=== PATIENT | female | born 1945 | race Caucasian/White ===

== ENCOUNTER 2023-03-20 21:15 | Inpatient (IN) | payer BC, MEDICARE ==
[~2023-03-20 21:15] MED LIST: Iopamidol-370 76% 500 ML MDV (1 ML CHARGE) ONE
[2023-03-20 21:47] LABS: #Eosinphils 0.2 thou/uL (0.0-0.7); #Monocytes 0.8 thou/uL (0.11-0.59); #Neutrophils 4.6 thou/uL (1.40-6.50); %Basophils 0.4 % (0.0-1.0); %Eosinophils 1.6 % (0.0-10.0); %Lymphocytes 47.9 % (21.0-51.0); %Monocytes 7.5 % (0.0-10.0); %Neutrophils 40.7 % (42.0-75.0); Hematocrit 34.8 % (36.0-47.0); Hemoglobin 10.9 g/dL (12.0-16.0); Mean Corpuscular HGB CONC 31.3 g/dL (32.0-36.0); Mean Corpuscular Hemoglobin 26.1 pg (27.0-31.0); Mean Corpuscular Volume 83.3 fl (78.0-98.0); Mean Platelet Volume 8.8 fL (7.4-10.4); Platelet Count 240 10x3/uL (130-400); Red Blood Cell (RBC) Count 4.18 mill/uL (4.20-5.40); White Blood Cell (WBC) Count 11.2 10x3/uL (4.8-10.8)
[2023-03-20 22:24] LABS: ALT (SGPT) 15 U/L (8-55); AST (SGOT) 20 U/L (5-34); Albumin 3.6 g/dL (3.4-4.8); Alkaline Phosphatase 47 U/L (40-110); Anion Gap 16 mmol/L (10-20); BUN (Urea Nitrogen) 15 mg/dL (9.8-20.1); Bilirubin, Total 0.4 mg/dL (0.2-1.2); Calc. Creatinine Clearance 0 mL/min (70-130); Carbon Dioxide 20 mmol/L (23-31); Chloride 95 mmol/L (98-107); Estimated GFR 62; Globulin 2.5 g/dL (2.4-3.5); Glucose 142 mg/dL (83-110); Potassium 3.2 mmol/L (3.5-5.1); Protein, Total 6.1 g/dL (5.8-8.1); Sodium 128 mmol/L (136-145)
[2023-03-20 22:25] LABS: Troponin I Less than 0.010 ng/mL (< 0.028)
[2023-03-20 22:28] LABS: Critical Call Chem-Lactate NUR.MB20@2228
[2023-03-21 00:33] LABS: Bacteria/HPF None Seen HPF (None Seen); Bilirubin Negative (Negative); Blood, Urine Negative (Negative); CAUTI Indications for Culture Alt mental st,lethar; Clarity Clear (Clear); Glucose, Urine (Dipstick) Normal (Negative); Ketone, Urine Negative (Negative); Leukocyte Negative Leu/uL (Negative); Nitrite Negative (Negative); Protein, Urine (Dipstick) Negative (Neg-Trace); RBC/HPF 0-3 HPF (0-3); Specific Gravity, Urine 1.037 (1.002-1.036); Squamous Epithelial None Seen HPF (0-3); Urobilinogen Normal mg/dL (Less than 2)
[2023-03-21 00:36] LABS: Urine Culture Reflex No No
[2023-03-21] MEDS ORDERED: LORazepam 2 MG/ML SYR.(CARPUJECT) ONE (00:41)
[2023-03-21] MEDS ORDERED: levETIRAcetam 500 MG (5 mL) VIAL ONE (00:46)
[2023-03-21] MEDS ORDERED: Sodium Chloride 0.9% 100 ML ONE (00:46)
[2023-03-21] MEDS ORDERED: dilTIAZem 25 MG/5 ML VIAL ONE (00:56)
[2023-03-21 01:31] LABS: Lactic Acid 1.3 mmol/L (0.5-2.2)
[2023-03-21 01:42] LABS: Amphetamine Not Detected (NotDetected); Barbiturates Screen Not Detected (NotDetected); Benzodiazepine Screen Not Detected (NotDetected); Cocaine Metabolite Screen Not Detected (NotDetected); Methadone Not Detected (NotDetected); Methamphetamine Not Detected (NotDetected); Opiate Screen Not Detected (NotDetected); Oxycodone Screen Not Detected (NotDetected); Phencyclidine (PCP) Not Detected (NotDetected); THC/Cannabinoid Screen Not Detected (NotDetected); Tricyclic Screen Not Detected (NotDetected)
[2023-03-21 01:52] LABS: Acetaminophen Less than 10 mcg/mL (10.0-30.0); Alcohol Less than 10.0 mg/dL (Less than 10); Lipase 72 U/L (8-78); Salicylate Less than 8.0 mg/dL (15.0-30.0)
[2023-03-21] MEDS ORDERED: Lorazepam 2 MG/ML VIAL SLOW IVP PRN (02:08)
[2023-03-21] MEDS ORDERED: Electrolyte Replacement Protocol 1 EACH FS SCH (02:09)
[2023-03-21] MEDS ORDERED: Ondansetron ODT 4 MG TAB PO PRN (02:10)
[2023-03-21 02:28] LABS: SARS-CoV-2 NAA Rapid Test Not Detected (NotDetected)
[2023-03-21 03:01] LABS: Magnesium 1.8 mg/dL (1.6-2.6)
[2023-03-21] MEDS ORDERED: Magnesium 2 GM/50 ML(in water) 2 GM in Premix 1 BAG IVPB SCH (04:00)
[2023-03-21 04:36] VITALS: BMI 24.4
[2023-03-21] MEDS ORDERED: Magnesium 2 GM/50 ML BAG (IN WATER) ONE (04:40)
[2023-03-21] MEDS ORDERED: niCARdipine 25 MG/10 ML SDV ONE (04:40)
[2023-03-21] MEDS ORDERED: Potassium Chloride 20 MEQ (100 mL) BAG ONE ×2 (04:40→06:50)
[2023-03-21] MEDS: Potassium Chloride 20 MEQ in Premix 1 BAG IVPB SCH ×2 (04:55→06:56)
[2023-03-21] MEDS: niCARdipine 25 MG in Sodium Chloride 0.9% 250 ML 250 ML IVPB SCH ×2 (05:03→05:26)
[2023-03-21 06:04] LABS: Anion Gap 16 mmol/L (10-20); BUN (Urea Nitrogen) 10 mg/dL (9.8-20.1); Calc. Creatinine Clearance 58 mL/min (70-130); Calcium 9.2 mg/dL (7.8-10.44); Carbon Dioxide 21 mmol/L (23-31); Chloride 98 mmol/L (98-107); Estimated GFR 77; Glucose 181 mg/dL (83-110); Potassium 3.2 mmol/L (3.5-5.1); Sodium 132 mmol/L (136-145)
[2023-03-21] MEDS ORDERED: Famotidine 20 MG TAB PO SCH (09:00)
[2023-03-21] MEDS ORDERED: Losartan 25 MG TAB PO SCH (09:45)
[2023-03-21] MEDS ORDERED: Spironolactone 25 MG TAB PO SCH (09:45)
[2023-03-21] MEDS ORDERED: Lorazepam 2 MG/ML VIAL SLOW IVP SCH (09:45)
[2023-03-21] MEDS ORDERED: Famotidine 20 MG TAB ONE (09:54)
[2023-03-21] MEDS ORDERED: Losartan 25 MG TAB ONE (09:54)
[2023-03-21 15:00] LABS: #Monocytes 0.5 thou/uL (0.11-0.59); %Basophils 0.2 % (0.0-1.0); %Eosinophils 0.1 % (0.0-10.0); %Lymphocytes 7.2 % (21.0-51.0); %Monocytes 2.7 % (0.0-10.0); %Neutrophils 89.4 % (42.0-75.0); Hematocrit 42.2 % (36.0-47.0); Hemoglobin 13.5 g/dL (12.0-16.0); Mean Corpuscular Hemoglobin 26.3 pg (27.0-31.0); Mean Corpuscular Volume 82.1 fl (78.0-98.0); Mean Platelet Volume 9.4 fL (7.4-10.4); Platelet Count 186 10x3/uL (130-400); RBC Distribution Width 15.1 % (11.5-14.5); Red Blood Cell (RBC) Count 5.14 mill/uL (4.20-5.40); White Blood Cell (WBC) Count 17.9 10x3/uL (4.8-10.8)
[2023-03-21] MEDS: Acetaminophen 325 MG TAB PO PRN (15:12)
[2023-03-21 15:22] LABS: ALT (SGPT) 23 U/L (8-55); AST (SGOT) 46 U/L (5-34); Albumin 4.1 g/dL (3.4-4.8); Alkaline Phosphatase 66 U/L (40-110); Anion Gap 16 mmol/L (10-20); BUN (Urea Nitrogen) 12 mg/dL (9.8-20.1); Bilirubin, Total 1.7 mg/dL (0.2-1.2); CK (CPK) 797 U/L (29-168); Calc. Creatinine Clearance 62 mL/min (70-130); Calcium 8.7 mg/dL (7.8-10.44); Carbon Dioxide 21 mmol/L (23-31); Chloride 98 mmol/L (98-107); Estimated GFR 84; Globulin 3.2 g/dL (2.4-3.5); Glucose 118 mg/dL (83-110); Magnesium 2.2 mg/dL (1.6-2.6); Potassium 3.9 mmol/L (3.5-5.1); Protein, Total 7.3 g/dL (5.8-8.1); Sodium 131 mmol/L (136-145)
[2023-03-21] MEDS: levETIRAcetam 500 MG (5 mL) VIAL SLOW IVP SCH (20:29)
[2023-03-22] MEDS ORDERED: Sodium Chloride 0.9% 500 ML IV SCH (01:00)
[2023-03-22 01:19] LABS: #Monocytes 0.4 thou/uL (0.11-0.59); #Neutrophils 14.5 thou/uL (1.40-6.50); %Basophils 0.1 % (0.0-1.0); %Lymphocytes 4.4 % (21.0-51.0); %Monocytes 2.4 % (0.0-10.0); %Neutrophils 92.8 % (42.0-75.0); Hematocrit 38.8 % (36.0-47.0); Hemoglobin 12.4 g/dL (12.0-16.0); Mean Corpuscular Hemoglobin 26.7 pg (27.0-31.0); Mean Corpuscular Volume 83.6 fl (78.0-98.0); Platelet Count 163 10x3/uL (130-400); RBC Distribution Width 15.5 % (11.5-14.5); Red Blood Cell (RBC) Count 4.64 mill/uL (4.20-5.40); White Blood Cell (WBC) Count 15.6 10x3/uL (4.8-10.8)
[2023-03-22 01:48] LABS: Anion Gap 17 mmol/L (10-20); BUN (Urea Nitrogen) 16 mg/dL (9.8-20.1); CK (CPK) 684 U/L (29-168); Calc. Creatinine Clearance 38 mL/min (70-130); Calcium 8.7 mg/dL (7.8-10.44); Carbon Dioxide 18 mmol/L (23-31); Chloride 100 mmol/L (98-107); Estimated GFR 47; Glucose 135 mg/dL (83-110); Sodium 131 mmol/L (136-145)
[2023-03-22] MEDS: Sodium Chloride 0.9% 1,000 ML IV SCH ×3 (01:55→20:22)
[2023-03-22] MEDS: Levothyroxine Sodium 25 MCG TAB PO SCH (06:17)
[2023-03-22] MEDS: levETIRAcetam 500 MG (5 mL) VIAL SLOW IVP SCH (09:34)
[2023-03-22] MEDS: Loratadine 10 MG TAB PO SCH (09:36)
[2023-03-22] MEDS: Losartan 25 MG TAB PO SCH (09:37)
[2023-03-22] MEDS: Spironolactone 25 MG TAB PO SCH (09:37)
[2023-03-22] MEDS: Atorvastatin Calcium 40 MG TAB PO SCH (09:39)
[2023-03-22] MEDS: Montelukast Sodium 10 mg Tablet PO SCH (09:40)
[2023-03-22] MEDS: Acetaminophen 325 MG TAB PO PRN (09:41)
[2023-03-22 11:56] LABS: Bacteria/HPF None Seen HPF (None Seen); Bilirubin Negative (Negative); Blood, Urine 3+ (Negative); CAUTI Indications for Culture Acute Hematuria; Clarity Extra Turbid (Clear); Glucose, Urine (Dipstick) Normal (Negative); Ketone, Urine Negative (Negative); Leukocyte 500 Leu/uL (Negative); Nitrite 1+ (Negative); Protein, Urine (Dipstick) 200 mg/dL (Neg-Trace); RBC/HPF Greater than 50 HPF (0-3); Squamous Epithelial None Seen HPF (0-3); Urobilinogen Normal mg/dL (Less than 2); WBC/HPF Greater than 50 HPF (0-3)
[2023-03-22 12:11] LABS: Urine Culture Reflex Yes Yes
[2023-03-22] MEDS: levETIRAcetam 500 MG TAB PO SCH (20:22)
[2023-03-23] MEDS: Levothyroxine Sodium 25 MCG TAB PO SCH (05:23)
[2023-03-23] MEDS: Sodium Chloride 0.9% 1,000 ML IV SCH ×2 (07:10→20:03)
[2023-03-23] MEDS: levETIRAcetam 500 MG TAB PO SCH ×2 (09:01→20:03)
[2023-03-23] MEDS: Atorvastatin Calcium 40 MG TAB PO SCH (09:01)
[2023-03-23] MEDS: Loratadine 10 MG TAB PO SCH (09:01)
[2023-03-23] MEDS: Losartan 25 MG TAB PO SCH (09:01)
[2023-03-23] MEDS: Montelukast Sodium 10 mg Tablet PO SCH (09:01)
[2023-03-23] MEDS: Spironolactone 25 MG TAB PO SCH (09:01)
[2023-03-23] MEDS: Acetaminophen 325 MG TAB PO PRN (13:30)
[2023-03-23] MEDS ORDERED: traMADol HCl 50 MG TAB PO PRN (14:51)
[2023-03-24] MEDS: Sodium Chloride 0.9% 1,000 ML IV SCH ×2 (04:14→18:13)
[2023-03-24 05:03] LABS: Hematocrit 30.6 % (36.0-47.0); Hemoglobin 9.8 g/dL (12.0-16.0); Manual Diff?? YES; Mean Corpuscular Hemoglobin 26.8 pg (27.0-31.0); Mean Corpuscular Volume 83.6 fl (78.0-98.0); Mean Platelet Volume 10.2 fL (7.4-10.4); Platelet Count 140 10x3/uL (130-400); RBC Distribution Width 15.6 % (11.5-14.5); Red Blood Cell (RBC) Count 3.66 mill/uL (4.20-5.40); White Blood Cell (WBC) Count 17.3 10x3/uL (4.8-10.8)
[2023-03-24 05:10] LABS: Delete Auto Diff?? YES
[2023-03-24 05:37] LABS: Band 27 % (5-11); CellaVision Operator ID LAB.CLH1; Hypochromia SLIGHT = 6-15 cells HPF (0-5); Lymphocytes 9 % (21-51); Monocytes 2 % (0-10); Neutrophil 63 % (42-75); Platelet Adequacy Comment Platelets Normal; Polychromasia SLIGHT = 2-3 cells HPF (0-2); Total Cell Count 102
[2023-03-24] MEDS: Levothyroxine Sodium 25 MCG TAB PO SCH (05:41)
[2023-03-24] MEDS: Acetaminophen 325 MG TAB PO PRN ×2 (05:43→09:52)
[2023-03-24 06:40] LABS: Calcium 7.9 mg/dL (7.8-10.44); Chloride 105 mmol/L (98-107); Potassium 3.6 mmol/L (3.5-5.1); Sodium 133 mmol/L (136-145)
[2023-03-24 06:41] LABS: Glucose 71 mg/dL (83-110)
[2023-03-24 06:42] LABS: Anion Gap 11 mmol/L (10-20); Carbon Dioxide 21 mmol/L (23-31)
[2023-03-24 06:44] LABS: Calc. Creatinine Clearance 82 mL/min (70-130); Estimated GFR 93
[2023-03-24 06:45] LABS: BUN (Urea Nitrogen) 6 mg/dL (9.8-20.1)
[2023-03-24] MEDS: Atorvastatin Calcium 40 MG TAB PO SCH (09:50)
[2023-03-24] MEDS: Losartan 25 MG TAB PO SCH (09:51)
[2023-03-24] MEDS: Montelukast Sodium 10 mg Tablet PO SCH (09:52)
[2023-03-24] MEDS: Spironolactone 25 MG TAB PO SCH (09:52)
[2023-03-24] MEDS: levETIRAcetam 500 MG TAB PO SCH ×2 (09:54→20:44)
[2023-03-24] MEDS: Loratadine 10 MG TAB PO SCH (09:55)
[2023-03-24] MEDS ORDERED: Ibuprofen 100 MG/5 ML UDCUP PO PRN (10:14)
[2023-03-24] MEDS ORDERED: hydrALAZINE 25 MG TAB PO SCH (10:15)
[2023-03-24] MEDS ORDERED: Nitrofurantoin Monohyd/M-Cryst 100 MG CAP PO SCH (15:30)
[2023-03-24] MEDS: hydrALAZINE 25 MG TAB PO SCH ×2 (18:18→20:45)
[2023-03-24] MEDS: Nitrofurantoin Monohyd/M-Cryst 100 MG CAP PO SCH (20:45)
[2023-03-25] MEDS: Sodium Chloride 0.9% 1,000 ML IV SCH ×2 (04:04→16:22)
[2023-03-25] MEDS ORDERED: Losartan 25 MG TAB PO SCH (05:30)
[2023-03-25] MEDS: Levothyroxine Sodium 25 MCG TAB PO SCH (05:33)
[2023-03-25 07:29] LABS: #Eosinphils 0.3 thou/uL (0.0-0.7); #Monocytes 0.9 thou/uL (0.11-0.59); #Neutrophils 8.6 thou/uL (1.40-6.50); %Basophils 0.3 % (0.0-1.0); %Eosinophils 2.4 % (0.0-10.0); %Monocytes 7.9 % (0.0-10.0); Hemoglobin 11.2 g/dL (12.0-16.0); Mean Corpuscular HGB CONC 32.9 g/dL (32.0-36.0); Mean Corpuscular Hemoglobin 26.7 pg (27.0-31.0); Mean Corpuscular Volume 81.1 fl (78.0-98.0); Mean Platelet Volume 9.9 fL (7.4-10.4); Platelet Count 180 10x3/uL (130-400); RBC Distribution Width 15.5 % (11.5-14.5); Red Blood Cell (RBC) Count 4.19 mill/uL (4.20-5.40)
[2023-03-25 07:44] LABS: Anion Gap 12 mmol/L (10-20); BUN (Urea Nitrogen) 4 mg/dL (9.8-20.1); Calc. Creatinine Clearance 83 mL/min (70-130); Calcium 8.5 mg/dL (7.8-10.44); Carbon Dioxide 24 mmol/L (23-31); Chloride 101 mmol/L (98-107); Estimated GFR 94; Glucose 101 mg/dL (83-110); Sodium 134 mmol/L (136-145)
[2023-03-25] MEDS ORDERED: Potassium Bicarbonate/Cit Ac 20 MEQ TAB PER TUBE SCH (08:30)
[2023-03-25] MEDS: hydrALAZINE 25 MG TAB PO SCH ×3 (09:15→22:10)
[2023-03-25] MEDS: levETIRAcetam 500 MG TAB PO SCH ×2 (09:17→22:10)
[2023-03-25] MEDS: Spironolactone 25 MG TAB PO SCH (09:17)
[2023-03-25] MEDS: Montelukast Sodium 10 mg Tablet PO SCH (09:17)
[2023-03-25] MEDS: Loratadine 10 MG TAB PO SCH (09:17)
[2023-03-25] MEDS: Nitrofurantoin Monohyd/M-Cryst 100 MG CAP PO SCH ×2 (09:18→22:09)
[2023-03-25] MEDS: Atorvastatin Calcium 40 MG TAB PO SCH (09:18)
[2023-03-25 16:20] LABS: Potassium 3.7 mmol/L (3.5-5.1)
[2023-03-25] MEDS ORDERED: Bisacodyl 5 MG TAB PO PRN (16:26)
[2023-03-26 05:13] LABS: #Basophils 0.1 thou/uL (0.0-0.2); %Basophils 0.4 % (0.0-1.0); %Eosinophils 0.1 % (0.0-10.0); %Lymphocytes 11.4 % (21.0-51.0); %Monocytes 6.8 % (0.0-10.0); %Neutrophils 79.4 % (42.0-75.0); Hemoglobin 13.4 g/dL (12.0-16.0); Mean Corpuscular HGB CONC 32.7 g/dL (32.0-36.0); Mean Corpuscular Hemoglobin 26.2 pg (27.0-31.0); Mean Corpuscular Volume 80.1 fl (78.0-98.0); Mean Platelet Volume 9.2 fL (7.4-10.4); Platelet Count 245 10x3/uL (130-400); RBC Distribution Width 15.2 % (11.5-14.5); Red Blood Cell (RBC) Count 5.12 mill/uL (4.20-5.40); White Blood Cell (WBC) Count 13.9 10x3/uL (4.8-10.8)
[2023-03-26 05:34] LABS: Magnesium 1.4 mg/dL (1.6-2.6)
[2023-03-26 05:37] LABS: Anion Gap 14 mmol/L (10-20); BUN (Urea Nitrogen) 8 mg/dL (9.8-20.1); Calc. Creatinine Clearance 63 mL/min (70-130); Calcium 8.7 mg/dL (7.8-10.44); Carbon Dioxide 20 mmol/L (23-31); Chloride 93 mmol/L (98-107); Estimated GFR 85; Glucose 136 mg/dL (83-110); Sodium 123 mmol/L (136-145)
[2023-03-26] MEDS: Levothyroxine Sodium 25 MCG TAB PO SCH (06:15)
[2023-03-26] MEDS ORDERED: Magnesium Sulfate In Water 4 GM in Premix 1 BAG IVPB SCH (08:00)
[2023-03-26] MEDS: Montelukast Sodium 10 mg Tablet PO SCH (08:56)
[2023-03-26] MEDS: Loratadine 10 MG TAB PO SCH (08:56)
[2023-03-26] MEDS: levETIRAcetam 500 MG TAB PO SCH ×2 (08:56→21:20)
[2023-03-26] MEDS: Atorvastatin Calcium 40 MG TAB PO SCH (08:56)
[2023-03-26] MEDS: Nitrofurantoin Monohyd/M-Cryst 100 MG CAP PO SCH ×2 (08:56→21:20)
[2023-03-26] MEDS: Spironolactone 25 MG TAB PO SCH (08:57)
[2023-03-26] MEDS: Sodium Chloride 0.9% 1,000 ML IV SCH (09:02)
[2023-03-26] MEDS: Losartan 25 MG TAB PO SCH (09:03)
[2023-03-26] MEDS: hydrALAZINE 25 MG TAB PO SCH ×3 (09:03→21:20)
[2023-03-26 19:33] LABS: Anion Gap 12 mmol/L (10-20); BUN (Urea Nitrogen) 16 mg/dL (9.8-20.1); Calc. Creatinine Clearance 54 mL/min (70-130); Calcium 8.5 mg/dL (7.8-10.44); Carbon Dioxide 20 mmol/L (23-31); Chloride 93 mmol/L (98-107); Estimated GFR 71; Glucose 121 mg/dL (83-110); Potassium 4.3 mmol/L (3.5-5.1); Sodium 121 mmol/L (136-145)
[2023-03-27 06:03] LABS: Anion Gap 15 mmol/L (10-20); BUN (Urea Nitrogen) 15 mg/dL (9.8-20.1); Calc. Creatinine Clearance 56 mL/min (70-130); Calcium 8.3 mg/dL (7.8-10.44); Carbon Dioxide 21 mmol/L (23-31); Chloride 93 mmol/L (98-107); Estimated GFR 75; Glucose 112 mg/dL (83-110); Phosphorus 3.5 mg/dL (2.3-4.7); Sodium 125 mmol/L (136-145)
[2023-03-27] MEDS: Levothyroxine Sodium 25 MCG TAB PO SCH (06:15)
[2023-03-27] MEDS ORDERED: Magnesium 2 GM/50 ML(in water) 2 GM in Premix 1 BAG IVPB SCH (08:00)
[2023-03-27] MEDS ORDERED: Sodium Chloride 1 GM TAB PO SCH (10:30)
[2023-03-27] MEDS ORDERED: Methyl Salicylate/Menthol 85 GM TUBE TOP PRN (11:02)
[2023-03-27] MEDS: levETIRAcetam 500 MG TAB PO SCH ×2 (11:27→20:16)
[2023-03-27] MEDS: hydrALAZINE 25 MG TAB PO SCH (11:27)
[2023-03-27] MEDS: Atorvastatin Calcium 40 MG TAB PO SCH (11:27)
[2023-03-27] MEDS: Nitrofurantoin Monohyd/M-Cryst 100 MG CAP PO SCH ×2 (11:27→20:16)
[2023-03-27] MEDS: Losartan 25 MG TAB PO SCH (11:28)
[2023-03-27] MEDS: Loratadine 10 MG TAB PO SCH (11:28)
[2023-03-27] MEDS: Spironolactone 25 MG TAB PO SCH (11:28)
[2023-03-27] MEDS: Montelukast Sodium 10 mg Tablet PO SCH (11:28)
[2023-03-27] MEDS: Sodium Chloride 1 GM TAB PO SCH (20:16)
[2023-03-27] MEDS: Melatonin 3 MG TAB PO PRN (20:16)
[2023-03-28 05:05] LABS: Anion Gap 12 mmol/L (10-20); BUN (Urea Nitrogen) 14 mg/dL (9.8-20.1); Calc. Creatinine Clearance 65 mL/min (70-130); Calcium 8.3 mg/dL (7.8-10.44); Carbon Dioxide 22 mmol/L (23-31); Chloride 95 mmol/L (98-107); Estimated GFR 88; Glucose 102 mg/dL (83-110); Potassium 4.2 mmol/L (3.5-5.1); Sodium 125 mmol/L (136-145)
[2023-03-28] MEDS: Levothyroxine Sodium 25 MCG TAB PO SCH (06:41)
[2023-03-28] MEDS ORDERED: Magnesium 2 GM/50 ML(in water) 2 GM in Premix 1 BAG IVPB SCH (09:00)
[2023-03-28] MEDS: Montelukast Sodium 10 mg Tablet PO SCH (09:35)
[2023-03-28] MEDS: levETIRAcetam 500 MG TAB PO SCH ×2 (09:35→20:44)
[2023-03-28] MEDS: Atorvastatin Calcium 40 MG TAB PO SCH (09:35)
[2023-03-28] MEDS: Nitrofurantoin Monohyd/M-Cryst 100 MG CAP PO SCH (09:35)
[2023-03-28] MEDS: Loratadine 10 MG TAB PO SCH (09:35)
[2023-03-28] MEDS: Sodium Chloride 1 GM TAB PO SCH ×2 (09:42→20:45)
[2023-03-28 09:46] LABS: Bacteria/HPF 3+ HPF (None Seen); Bilirubin Negative (Negative); Blood, Urine 3+ (Negative); CAUTI Indications for Culture Alt mental st,lethar; Clarity Extra Turbid (Clear); Glucose, Urine (Dipstick) Normal (Negative); Ketone, Urine Negative (Negative); Leukocyte 500 Leu/uL (Negative); Nitrite Negative (Negative); Protein, Urine (Dipstick) 200 mg/dL (Neg-Trace); RBC/HPF Greater than 50 HPF (0-3); Specific Gravity, Urine 1.011 (1.002-1.036); Squamous Epithelial 0-3 HPF (0-3); Urobilinogen Normal mg/dL (Less than 2); WBC/HPF Greater than 50 HPF (0-3); pH, Urine 6.5 (5.0-9.0)
[2023-03-28 09:51] LABS: Urine Culture Reflex Yes Yes
[2023-03-28] MEDS ORDERED: Piperacillin/Tazobactam 3.375 GM in Sodium Chloride 0.9% 100 ML IVPB SCH ×2 (11:45→16:00)
[2023-03-28 12:28] LABS: Hematocrit 38.7 % (36.0-47.0); Hemoglobin 11.6 g/dL (12.0-16.0); Manual Diff?? YES; Mean Corpuscular Hemoglobin 26.7 pg (27.0-31.0); Mean Corpuscular Volume 89.2 fl (78.0-98.0); Mean Platelet Volume 9.4 fL (7.4-10.4); Platelet Count 221 10x3/uL (130-400); RBC Distribution Width 15.6 % (11.5-14.5); Red Blood Cell (RBC) Count 4.34 mill/uL (4.20-5.40); White Blood Cell (WBC) Count 10.4 10x3/uL (4.8-10.8)
[2023-03-28 12:34] LABS: Delete Auto Diff?? YES
[2023-03-28 13:25] LABS: Band 28 % (5-11); Eosinophils 1 % (0-10); Lymphocytes 19 % (21-51); Monocytes 2 % (0-10); Neutrophil 50 % (42-75)
[2023-03-28 13:26] LABS: Anisocytosis SLIGHT = 6-15 cells (100X) (0-5/hpf); Hypochromia SLIGHT = 6-15 cells (100X) (0-5/hpf); Ovalocytes SLIGHT = 2-5 cells (100X) (0-1/hpf); Platelet Adequacy Comment Platelets Normal; Polychromasia SLIGHT = 2-3 cells (100X) (0-2/hpf)
[2023-03-28] MEDS: Melatonin 3 MG TAB PO PRN (20:44)
[2023-03-28] MEDS: Piperacillin/Tazobactam 3.375 GM in Sodium Chloride 0.9% 100 ML IVPB SCH (20:45)
[2023-03-29] MEDS ORDERED: hydrALAZINE 25 MG TAB PO SCH (01:00)
[2023-03-29] MEDS: Piperacillin/Tazobactam 3.375 GM in Sodium Chloride 0.9% 100 ML IVPB SCH ×3 (03:17→20:37)
[2023-03-29 04:51] LABS: Hematocrit 36.3 % (36.0-47.0); Hemoglobin 11.7 g/dL (12.0-16.0); Manual Diff?? YES; Mean Corpuscular HGB CONC 32.2 g/dL (32.0-36.0); Mean Corpuscular Hemoglobin 26.1 pg (27.0-31.0); Mean Platelet Volume 8.9 fL (7.4-10.4); Platelet Count 263 10x3/uL (130-400); Red Blood Cell (RBC) Count 4.49 mill/uL (4.20-5.40); White Blood Cell (WBC) Count 12.6 10x3/uL (4.8-10.8)
[2023-03-29 04:58] LABS: Delete Auto Diff?? YES; Mean Corpuscular Volume 80.8 fl (78.0-98.0)
[2023-03-29 05:24] LABS: Band 35 % (5-11); CellaVision Operator ID LAB.CLH1; Eosinophils 2 % (0-10); Hypochromia SLIGHT = 6-15 cells HPF (0-5); Large Platelets 2.9 % (0-5); Lymphocytes 10 % (21-51); Metamyelocyte 1 % (0-0); Monocytes 4 % (0-10); Neutrophil 44 % (42-75); Platelet Adequacy Comment Platelets Normal; Poikilocytosis SLIGHT = 6-15 cells HPF (0-5); Polychromasia SLIGHT = 2-3 cells HPF (0-2); Promyelocytes 1 % (0-0); Reactive Lymphocytes 4 % (0-10); Total Cell Count 103
[2023-03-29 05:28] LABS: Anion Gap 13 mmol/L (10-20); BUN (Urea Nitrogen) 12 mg/dL (9.8-20.1); Calc. Creatinine Clearance 67 mL/min (70-130); Calcium 8.3 mg/dL (7.8-10.44); Carbon Dioxide 22 mmol/L (23-31); Chloride 92 mmol/L (98-107); Estimated GFR 89; Glucose 115 mg/dL (83-110); Potassium 3.7 mmol/L (3.5-5.1); Sodium 123 mmol/L (136-145)
[2023-03-29] MEDS: Levothyroxine Sodium 25 MCG TAB PO SCH (05:52)
[2023-03-29] MEDS: Montelukast Sodium 10 mg Tablet PO SCH (09:27)
[2023-03-29] MEDS: Atorvastatin Calcium 40 MG TAB PO SCH (09:27)
[2023-03-29] MEDS: levETIRAcetam 500 MG TAB PO SCH ×2 (09:27→20:37)
[2023-03-29] MEDS: Loratadine 10 MG TAB PO SCH (09:27)
[2023-03-29] MEDS: Sodium Chloride 1 GM TAB PO SCH ×2 (09:27→20:37)
[2023-03-29 13:00] LABS: Sodium 124 mmol/L (136-145)
[2023-03-30] MEDS: Levothyroxine Sodium 25 MCG TAB PO SCH (04:46)
[2023-03-30] MEDS: Piperacillin/Tazobactam 3.375 GM in Sodium Chloride 0.9% 100 ML IVPB SCH ×3 (04:46→20:24)
[2023-03-30 05:17] LABS: #Basophils 0.1 thou/uL (0.0-0.2); #Eosinphils 0.2 thou/uL (0.0-0.7); #Monocytes 0.8 thou/uL (0.11-0.59); #Neutrophils 7.1 thou/uL (1.40-6.50); %Basophils 0.6 % (0.0-1.0); %Eosinophils 1.4 % (0.0-10.0); %Lymphocytes 21.4 % (21.0-51.0); %Monocytes 7.6 % (0.0-10.0); %Neutrophils 66.6 % (42.0-75.0); Hematocrit 35.2 % (36.0-47.0); Mean Corpuscular HGB CONC 31.3 g/dL (32.0-36.0); Mean Corpuscular Hemoglobin 26.8 pg (27.0-31.0); Mean Corpuscular Volume 85.9 fl (78.0-98.0); Mean Platelet Volume 9.8 fL (7.4-10.4); Platelet Count 167 10x3/uL (130-400); RBC Distribution Width 15.5 % (11.5-14.5); White Blood Cell (WBC) Count 10.7 10x3/uL (4.8-10.8)
[2023-03-30 05:48] LABS: Anion Gap 13 mmol/L (10-20); BUN (Urea Nitrogen) 10 mg/dL (9.8-20.1); Calc. Creatinine Clearance 74 mL/min (70-130); Calcium 8.2 mg/dL (7.8-10.44); Carbon Dioxide 22 mmol/L (23-31); Chloride 97 mmol/L (98-107); Estimated GFR 91; Glucose 83 mg/dL (83-110); Potassium 4.1 mmol/L (3.5-5.1); Sodium 128 mmol/L (136-145)
[2023-03-30] MEDS: Atorvastatin Calcium 40 MG TAB PO SCH (09:18)
[2023-03-30] MEDS: Sodium Chloride 1 GM TAB PO SCH ×3 (09:18→20:23)
[2023-03-30] MEDS: Montelukast Sodium 10 mg Tablet PO SCH (09:18)
[2023-03-30] MEDS: levETIRAcetam 500 MG TAB PO SCH ×2 (09:19→20:23)
[2023-03-30] MEDS: Loratadine 10 MG TAB PO SCH (09:19)
[2023-03-30] MEDS: hydrALAZINE 25 MG TAB PO SCH ×2 (15:16→20:23)
[2023-03-30] MEDS ORDERED: Piperacillin/Tazobactam 3.375 GM in Sodium Chloride 0.9% 100 ML IVPB SCH (16:15)
[2023-03-30] MEDS ORDERED: Losartan 25 MG TAB PO SCH (16:49)
[2023-03-30] MEDS ORDERED: Tamsulosin HCl 0.4 MG CAP PO SCH (21:00)
[2023-03-30] MEDS: Melatonin 3 MG TAB PO PRN (21:56)
[2023-03-31 01:34] LABS: Bacteria/HPF None Seen HPF (None Seen); Bilirubin Negative (Negative); Blood, Urine 2+ (Negative); CAUTI Indications for Culture Urological Procedure; Clarity Turbid (Clear); Glucose, Urine (Dipstick) Normal (Negative); Ketone, Urine Negative (Negative); Leukocyte 500 Leu/uL (Negative); Nitrite Negative (Negative); Protein, Urine (Dipstick) 20 mg/dL (Neg-Trace); RBC/HPF Greater than 50 HPF (0-3); Specific Gravity, Urine 1.025 (1.002-1.036); Squamous Epithelial None Seen HPF (0-3); Transitional Epithelial 0-3 HPF (None Seen); Urobilinogen Normal mg/dL (Less than 2); WBC/HPF Greater than 50 HPF (0-3)
[2023-03-31 01:38] LABS: Urine Culture Reflex Yes Yes
[2023-03-31 04:02] LABS: Hematocrit 30.9 % (36.0-47.0); Hemoglobin 9.9 g/dL (12.0-16.0); Manual Diff?? YES; Mean Corpuscular Hemoglobin 26.6 pg (27.0-31.0); Mean Platelet Volume 8.9 fL (7.4-10.4); Platelet Count 273 10x3/uL (130-400); RBC Distribution Width 15.3 % (11.5-14.5); Red Blood Cell (RBC) Count 3.72 mill/uL (4.20-5.40); White Blood Cell (WBC) Count 8.4 10x3/uL (4.8-10.8)
[2023-03-31] MEDS: Levothyroxine Sodium 25 MCG TAB PO SCH (04:08)
[2023-03-31] MEDS: Piperacillin/Tazobactam 3.375 GM in Sodium Chloride 0.9% 100 ML IVPB SCH ×2 (04:08→12:39)
[2023-03-31 04:18] LABS: Anion Gap 9 mmol/L (10-20); BUN (Urea Nitrogen) 10 mg/dL (9.8-20.1); Calc. Creatinine Clearance 79 mL/min (70-130); Carbon Dioxide 26 mmol/L (23-31); Chloride 97 mmol/L (98-107); Estimated GFR 92; Glucose 91 mg/dL (83-110); Potassium 3.4 mmol/L (3.5-5.1); Sodium 129 mmol/L (136-145)
[2023-03-31 05:03] LABS: Delete Auto Diff?? YES; Mean Corpuscular Volume 83.1 fl (78.0-98.0)
[2023-03-31 06:43] LABS: Band 8 % (5-11); CellaVision Operator ID LAB.JMM; Elliptocytes SLIGHT = 2-5 cells HPF (0-1); Eosinophils 1 % (0-10); Lymphocytes 19 % (21-51); Metamyelocyte 1 % (0-0); Monocytes 5 % (0-10); Myelocyte 1 % (0-0); Neutrophil 63 % (42-75); Platelet Adequacy Comment Platelets Normal; Polychromasia SLIGHT = 2-3 cells HPF (0-2); Reactive Lymphocytes 2 % (0-10); Total Cell Count 100
[2023-03-31] MEDS ORDERED: Lorazepam 2 MG/ML VIAL SLOW IVP PRN (08:09)
[2023-03-31] MEDS: hydrALAZINE 25 MG TAB PO SCH ×2 (08:42→15:13)
[2023-03-31] MEDS: Montelukast Sodium 10 mg Tablet PO SCH (08:43)
[2023-03-31] MEDS: Losartan 25 MG TAB PO SCH (08:43)
[2023-03-31] MEDS: Spironolactone 25 MG TAB PO SCH (08:43)
[2023-03-31] MEDS: Atorvastatin Calcium 40 MG TAB PO SCH (08:45)
[2023-03-31] MEDS: Loratadine 10 MG TAB PO SCH (08:45)
[2023-03-31] MEDS: levETIRAcetam 500 MG TAB PO SCH (08:45)
[2023-03-31] MEDS: Sodium Chloride 1 GM TAB PO SCH ×2 (08:45→15:13)
[2023-03-31] MEDS ORDERED: Potassium Chloride 20 MEQ TAB PO SCH (09:15)
[2023-03-31 20:23] VITALS: BP 144/83; TEMP 98.1
== END 2023-03-31 20:25 | DRG 100 ==
LOC: ERS 21:15 → ERHOLD 03-21 02:19 → 2SE 03-21 12:53
PROVIDERS: ADMIT Student in an Organized Health Care Education/Training Program; ATTEND Hospitalist
PROC: 4A00X4Z Measurement of Central Nervous Electrical Activity, External Approach (ICD-10-PCS; principal; 2023-03-21)
DX: G40.909 Epilepsy, unspecified, not intractable, without status epilepticus (principal); J96.01 Acute respiratory failure with hypoxia; I16.1 Hypertensive emergency; E22.2 Syndrome of inappropriate secretion of antidiuretic hormone; N17.9 Acute kidney failure, unspecified; G93.40 Encephalopathy, unspecified; N39.0 Urinary tract infection, site not specified; Z11.52 Encounter for screening for COVID-19; J32.9 Chronic sinusitis, unspecified; G47.00 Insomnia, unspecified; Z79.899 Other long term (current) drug therapy; Z88.1 Allergy status to other antibiotic agents; E78.5 Hyperlipidemia, unspecified; I10 Essential (primary) hypertension; Z90.49 Acquired absence of other specified parts of digestive tract; Z98.890 Other specified postprocedural states; K21.9 Gastro-esophageal reflux disease without esophagitis; E03.9 Hypothyroidism, unspecified; K59.00 Constipation, unspecified
CPT/HCPCS: 36415; 36416; 51701; 70450; 70496; 70498; 70553; 71045; 76700; 80048; 80053; 80306; 80307; 81001; 82140; 82550; 83605; 83690; 83735; 83935; 84100; 84146; 84300; 84443; 84484; 85025; 85610; 86850; 86900; 86901; 87040; 87077; 87086; 87186; 93005; 93306; 95712; 95819; 96374; 96375; J1953; J2060; J2543; J3475; J3480; J3490; J7030; J7050; Q9967